=== PATIENT | female | born 2000 | race Caucasian/White ===

== ENCOUNTER 2020-09-22 22:07 | Inpatient (IN) | payer OTHER ==
[~2020-09-22] VITALS: Ht 167.6 cm; Wt 74.5 kg
[~2020-09-22 22:07] MED LIST: ACET120S; ASPIRIN; CEFD300 PO; CEPH500 PO; CODACEE120 PO; IBUP800 PO; MOTRIN PRN; MUPI2TO TOP; OPTLUBOPO BOTHEYES; PRED10 PO; PRED15SY PO; Prednisone20 MG PO; RANI150 PO; SILSUL1TC TOP; SULTRIEL PO; Zovirax800 MG PO
[2020-09-22 23:05] LABS: BASOPHILS ABSOLUTE AUTO 0.05 K/mm3 (0.00-0.23); BASOPHILS PERCENT AUTO 0 % (0-2); EOSINOPHILS ABSOLUTE AUTO 0.11 K/mm3 (0.00-0.68); EOSINOPHILS PERCENT AUTO 1 % (0-6); Hematocrit 35.7 % (33.0-51.0); Hemoglobin 12.2 g/dL (11.5-16.0); IMMATURE GRAN ABSOLUTE AUTO 0.22 K/mm3 (0.00-0.10); IMMATURE GRAN PERCENT AUTO 1 % (0-1); LYMPHOCYTES ABSOLUTE AUTO 2.26 K/mm3 (0.84-5.20); LYMPHOCYTES PERCENT AUTO 10 % (21-46); MONOCYTES ABSOLUTE AUTO 1.44 K/mm3 (0.16-1.47); MONOCYTES PERCENT AUTO 7 % (4-13); Mean Corpuscular HGB 29.9 pg (26.0-34.0); Mean Corpuscular HGB Conc 34.2 g/dL (31.5-36.5); Mean Corpuscular Volume 88 fL (80-100); NEUTROPHILS ABSOLUTE AUTO 17.55 K/mm3 (1.96-9.15); NEUTROPHILS PERCENT AUTO 81 % (41-73); Platelet Count 396 K/mm3 (150-400); RDW Coefficient Variation 12.8 % (11.7-14.2); Red Blood Cell Count 4.08 M/mm3 (3.80-5.20); White Blood Cell Count 21.63 K/mm3 (4.00-11.30)
[2020-09-22 23:48] LABS: Influenza A, PCR NEGATIVE (NEGATIVE); Influenza B, PCR NEGATIVE (NEGATIVE); Resp Syncytial Virus, PCR NEGATIVE (NEGATIVE); SARS-Cov-2 (COVID-19) PCR, MMC NEGATIVE (NEGATIVE)
[2020-09-23] MEDS ORDERED: IBU800 M1 PO (10:35)
--- NOTE | 2020-09-23 11:43 | NUR ---
RN/LC ROUNDED TO HELP W/ . PT STATES FEEDING HAS BEEN GOING WELL. INSTRUCTED PT ON CORRECT POSITIONING, LATCHING, NIPPLE SHAPE AFTER FEEDS, AND FREQUENCY OF FEEDING. PT ASKED ABOUT FORMULA FEEDING NB WELL. RN INSTRUCTED PT THAT BREAST OR FORMULA FEEDING ARE BOTH GOOD OPTIONS THAT IT IS OK FOR HER TO FEED HER BABY HOW SHE WANTS TO, INSTRUCTED PT TO FEED NB EVERY 2-3 HOURS WHETHER SHE IS GOING TO BREAST OF BOTTLE FEED. PT VERBALIZED UNDERSTANDING, DENIES ANY FURTHER QUESTIONS OR CONCERNS.
[2020-09-24 06:04] LABS: BASOPHILS ABSOLUTE AUTO 0.03 K/mm3 (0.00-0.23); BASOPHILS PERCENT AUTO 0 % (0-2); EOSINOPHILS ABSOLUTE AUTO 0.12 K/mm3 (0.00-0.68); EOSINOPHILS PERCENT AUTO 1 % (0-6); Hematocrit 35.1 % (33.0-51.0); Hemoglobin 11.5 g/dL (11.5-16.0); IMMATURE GRAN ABSOLUTE AUTO 0.11 K/mm3 (0.00-0.10); IMMATURE GRAN PERCENT AUTO 1 % (0-1); LYMPHOCYTES ABSOLUTE AUTO 2.17 K/mm3 (0.84-5.20); LYMPHOCYTES PERCENT AUTO 15 % (21-46); MONOCYTES ABSOLUTE AUTO 1.03 K/mm3 (0.16-1.47); MONOCYTES PERCENT AUTO 7 % (4-13); Mean Corpuscular HGB 29.7 pg (26.0-34.0); Mean Corpuscular HGB Conc 32.8 g/dL (31.5-36.5); Mean Corpuscular Volume 91 fL (80-100); Mean Platelet Volume 10.7 fL (9.1-12.4); NEUTROPHILS ABSOLUTE AUTO 11.01 K/mm3 (1.96-9.15); NEUTROPHILS PERCENT AUTO 76 % (41-73); Platelet Count 345 K/mm3 (150-400); RDW Coefficient Variation 12.9 % (11.7-14.2); RDW Standard Deviation 42.5 fL (35.1-46.3); Red Blood Cell Count 3.87 M/mm3 (3.80-5.20); White Blood Cell Count 14.47 K/mm3 (4.00-11.30)
--- NOTE | 2020-09-24 14:26 | NUR ---
0835: RN/LC ROUNDED TO HELP W/ . PT IS VERY TEARFUL. STATES SHE WANTS TO BREASTFEED, JUST GAVE NB FORMULA W/ A BOTTLE. RN INSTRUCTED PT TO CALL WHEN SHE IS READY FOR NEXT FEED AND RN/LC WOULD COME AND HELP HER. PT VERBALIZED UNDERSTANDING, DENIES ANY FURTHER QUESTIONS OR CONCERNS. 1425: PT HAS NOT REQUESTED RN/LC TO COME AND HELP W/ .
--- NOTE | 2020-09-24 17:08 | NUR ---
PT IN ROOM, TEARFUL. HOLDING . DECLINES ANY ASSISTANCE. PT HAS BEEN VERY TIRED TODAY AND HAS NOT WORKED MUCH ON PAPER WORK OR LOOKED AT HER DISCHARGE INSTRUCTIONS. STATES BF WENT BETTER THE LAST FEED.
--- NOTE | 2020-09-25 10:42 | NUR ---
DISCHARGE SUMMARY PT DC HOME TODAY WITH NB AND S/O VIA IND AMBULATION. D/C INSTRUCTIONS, PERSONAL BELONGINGS, AND SCHEDULED PPFU APPT PROVIDED PRIOR TO DC. PT VERBALIZED UNDERSTANDING AND DENIED ANY FURTHER CONCERNS AT THIS TIME.
== END 2020-09-25 10:25 | disposition home or self-care (01) | DRG 807 ==
LOC: OBS 22:07 → BC 22:10 → OBS 22:38 → BC 22:40
PROVIDERS: ADMIT Family Medicine
PROC: 10E0XZZ Delivery of Products of Conception, External Approach (ICD-10-PCS; principal; 2020-09-23)
PROC: 3E0R3BZ Introduction of Anesthetic Agent into Spinal Canal, Percutaneous Approach (ICD-10-PCS; 2020-09-23)
PROC: 00HU33Z Insertion of Infusion Device into Spinal Canal, Percutaneous Approach (ICD-10-PCS; 2020-09-23)
DX: O99.824 Streptococcus B carrier state complicating childbirth (principal); Z37.0 Single live birth; Z3A.38 38 weeks gestation of pregnancy; O70.0 First degree perineal laceration during delivery; O36.5930 Maternal care for other known or suspected poor fetal growth, third trimester, not applicable or unspecified; Z20.822 Contact with and (suspected) exposure to COVID-19
CPT/HCPCS: 0241U; 36415; 51702; 85025; 86850; 86900; 86901; A9270; J0290; J1885; J2001; J2405; J2590; J3010; J7120

== ENCOUNTER 2024-02-15 00:18 | Emergency (ER) | payer OTHER ==
[~2024-02-15] VITALS: Ht 165.1 cm; Wt 81.7 kg
[~2024-02-15 00:18] MED LIST changes: +IBU800 M1 PO
[2024-02-15 00:37] VITALS: BP 113/69
[2024-02-15] MEDS ORDERED: Penicillin V Potassium 250 MG Tab PO ONE (00:45)
[2024-02-15] MEDS ORDERED: Ibuprofen 600 MG Tab PO ONE (00:45)
[2024-02-15] MEDS ORDERED: PERIDEX15 ML MM (00:46)
[2024-02-15] MEDS ORDERED: IBU600 MG PO (00:46)
[2024-02-15] MEDS ORDERED: Veetids 500500 MG PO (00:46)
== END 2024-02-15 00:56 | disposition home or self-care (01) ==
LOC: ER 00:18
DX: K08.89 Other specified disorders of teeth and supporting structures (principal); F17.200 Nicotine dependence, unspecified, uncomplicated
CPT/HCPCS: 99282; A9270

== ENCOUNTER → 2024-11-27 | Outpatient (CLI) | payer OTHER ==
[~2024-11-27] MED LIST changes: +IBU600 MG PO; +PERIDEX15 ML MM; +Veetids 500500 MG PO
== END ==
LOC: LAB 10:33 → LAB SHORT 10:33
PROVIDERS: Physician Assistant
DX: Z01.419 Encounter for gynecological examination (general) (routine) without abnormal findings (principal)
CPT/HCPCS: G0123